=== PATIENT | female | born 1940 | race Caucasian/White ===

== ENCOUNTER → 2018-01-19 10:17 | Outpatient (CLI) | payer MEDICARE, OTHER, SELFPAY ==
[2018-01-19 12:09] LABS: BUN Creatinine Ratio 28.6 (6-22); Blood Urea Nitrogen 20 mg/dL (7-17); Calcium 9.1 mg/dL (8.4-10.2); Carbon Dioxide 29 mmol/L (22-32); Chloride 103 mmol/L (98-107); Cholesterol 217 mg/dL (140-199); Estimated Glomerular Filt Rate > 60.0 mL/min (>60); Glucose 91 mg/dL (80-110); HDL Cholesterol 100 mg/dL (40-60); HEMOLYSIS < 15 (0-50); LDL Cholesterol Calculated 107 mg/dL (<100); Potassium 4.5 mmol/L (3.4-5.1); Sodium 142 mmol/L (137-145); Triglycerides 51 mg/dL (35-150)
[2018-01-19 12:19] LABS: Free T4, Direct Thyroxine 1.32 ng/dL (0.78-2.19); Vitamin D 25 Hydroxy (D3) 74.1 ng/mL (30.0-100.0)
[2018-01-19 12:33] LABS: Thyroid Stimulating Hormone 0.77 uIU/mL (0.47-4.68)
[2018-01-19 12:53] LABS: Vitamin B12 492 pg/mL (239-931)
[2018-01-19 13:08] LABS: Hep C Virus Ab w/Reflex Quant NEGATIVE s/c (NEGATIVE)
== END ==
PROVIDERS: Family Provider Acupuncturist; PCP Internal Medicine; Visit Provider Internal Medicine
DX: Z00.00 Encounter for general adult medical examination without abnormal findings (principal); D51.9 Vitamin B12 deficiency anemia, unspecified; E03.9 Hypothyroidism, unspecified; M81.0 Age-related osteoporosis without current pathological fracture
CPT/HCPCS: 36415; 80048; 80061; 82306; 82607; 84439; 84443; 86803

== ENCOUNTER → 2018-05-19 15:08 | Outpatient (CLI) | payer MEDICARE, OTHER, SELFPAY ==
--- NOTE | 2018-05-19 | DI.RAD.S_ITS ---
PROCEDURE: XR LUMBAR SPINE 2-3V INDICATIONS: LOW BACK PAIN TECHNIQUE: 3 views of the lumbar spine were acquired. COMPARISON: [facility], CT, CHEST/ABD/PEL WITH CONTRAST, 11/27/2015, 9:28. [facility], CR, L-SPINE 2-3 VIEWS, 06/27/2010, 8:15. FINDINGS: Bones: 5 [id number] vertebrae are present. There is a mildly abnormal bony alignment at the L4-5 level where grade 1 anterolisthesis of L4 on L5 is present. Degenerative disc disease is mild to moderate along the lower half of the LS-spine and facet osteoarthritis is most prominent at L4-5 and L5-S1. No vertebral body compression fractures. No suspicious bony lesions. Soft tissues: Overlying bowel gas pattern is normal. No pelvic suspicious soft tissue calcifications but there is a right upper quadrant 8 x 9 mm ovoid calcification more likely within the gallbladder than the kidney. IMPRESSION: No trauma found. Mild to moderate degenerative disc disease along the lower half of the lumbosacral spine with facet osteoarthritis allowing anterolisthesis grade 1 of L4 on L5. Note is made of a single calcification right upper quadrant more likely to be gallbladder in position than within the collecting system of the right kidney. Dictated by: Avery Mast M.D. on 05/19/2018 at 15:59 Approved by: Avery Mast M.D. on 05/19/2018 at 16:02
== END ==
PROVIDERS: Family Provider Acupuncturist; PCP Internal Medicine; Visit Provider Internal Medicine
DX: M51.37 Other intervertebral disc degeneration, lumbosacral region (principal); M47.817 Spondylosis without myelopathy or radiculopathy, lumbosacral region; M43.16 Spondylolisthesis, lumbar region; M54.5 Low back pain
CPT/HCPCS: 72100

== ENCOUNTER → 2018-06-11 13:30 | Outpatient (CLI) | payer MEDICARE, OTHER, SELFPAY ==
--- NOTE | 2018-06-11 13:32 | DI.RAD.S_ITS ---
PROCEDURE: XR HIP W PEL IF DONE RT 2V INDICATIONS: hip stiffness and loss of ROM TECHNIQUE: AP pelvis with lateral view(s) of the right hip(s). COMPARISON: None. FINDINGS: Bones: No fractures or dislocations. Pelvic ring appears intact. No suspicious bony lesions. Soft tissues: The visualized bowel gas pattern is normal. No suspicious soft tissue calcifications. IMPRESSION: Only very small degree of symmetric hip joint osteoarthritis is present bilaterally. Moderate generalize colonic obstipation is noted, however. . Dictated by: Avery Mast M.D. on 06/11/2018 at 14:44 Approved by: Avery Mast M.D. on 06/11/2018 at 14:45
== END ==
PROVIDERS: Family Provider Acupuncturist; PCP Internal Medicine; Visit Provider Physician Assistant
DX: M25.651 Stiffness of right hip, not elsewhere classified (principal); M16.0 Bilateral primary osteoarthritis of hip; K59.00 Constipation, unspecified
CPT/HCPCS: 73502

== ENCOUNTER → 2018-11-30 14:07 | Outpatient (CLI) | payer MEDICARE, OTHER, SELFPAY ==
--- NOTE | 2018-11-30 14:13 | DI.MG.S_ITS ---
BILATERAL DIGITAL SCREENING MAMMOGRAM 3D/2D WITH CAD: 11/30/2018 CLINICAL: Routine screening. Family history of breast cancer. Comparison is made to exams dated: 09/29/2017 mammogram, 02/05/2016 mammogram, and 01/29/2015 mammogram - [facility]. The tissue of both breasts is heterogeneously dense. This may lower the sensitivity of mammography. Current study was also evaluated with a Computer Aided Detection (CAD) system. No significant masses, calcifications, or other findings are seen in either breast. There has been no significant interval change. IMPRESSION: NEGATIVE There is no mammographic evidence of malignancy. A 1 year screening mammogram is recommended. This exam was interpreted at Station ID: [id number]. NOTE: For mammograms, a report in lay terms will be sent to the patient. Approximately 15% of breast malignancies will not be visualized mammographically. In the management of a palpable breast mass, a negative mammogram must not discourage biopsy of a clinically suspicious lesion. Electronically Signed By: Jonathon nunn/ashwini:11/30/2018 17:56:24 letter sent: Normal Exam ACR BI-RADS Category 1: Negative [id number]
[2018-11-30 15:41] LABS: Alanine Aminotransferase 18 IU/L (9-52); Albumin 4.5 g/dL (3.5-5.0); Albumin Globulin Ratio 1.7 (1.0-2.8); Alkaline Phosphatase 81 U/L (38-126); Aspartate Aminotransferase 20 IU/L (14-36); BUN Creatinine Ratio 23.8 (6-22); Bilirubin Total 0.6 mg/dL (0.2-1.3); Blood Urea Nitrogen 19 mg/dL (7-17); Calcium 8.9 mg/dL (8.4-10.2); Carbon Dioxide 28 mmol/L (22-32); Chloride 101 mmol/L (98-107); Estimated Glomerular Filt Rate > 60.0 mL/min (>60); Globulin 2.7 g/dL (1.7-4.1); Glucose 87 mg/dL (80-110); HEMOLYSIS < 15 (0-50); Potassium 3.8 mmol/L (3.4-5.1); Sodium 137 mmol/L (137-145); Total Protein 7.2 g/dL (6.3-8.2)
[2018-11-30 16:09] LABS: Thyroid Stimulating Hormone 0.59 uIU/mL (0.47-4.68)
== END ==
PROVIDERS: Family Provider Acupuncturist; PCP Physician Assistant
DX: Z12.31 Encounter for screening mammogram for malignant neoplasm of breast (principal); Z80.3 Family history of malignant neoplasm of breast; Z13.820 Encounter for screening for osteoporosis; M81.0 Age-related osteoporosis without current pathological fracture; Z78.0 Asymptomatic menopausal state; Z13.228 Encounter for screening for other metabolic disorders; E03.9 Hypothyroidism, unspecified; Z90.722 Acquired absence of ovaries, bilateral; Z85.42 Personal history of malignant neoplasm of other parts of uterus
CPT/HCPCS: 36415; 77063; 77067; 77080; 80053; 84443

== ENCOUNTER 2019-01-11 06:58 | Day surgery (SDC) | payer MEDICARE, OTHER, SELFPAY ==
--- NOTE | 2019-01-11 | PATH_ITS ---
[facility] Accession Number: [id number] . 01 Material submitted: . rectum - DISTAL RECTAL POLYP . 02 Diagnosis: Distal Rectum, Polyp, Biopsy: Hyperplastic polyp. [facility]/01/12/2019 . 02 Electronically signed: . Autumn Vaca MD, Pathologist NPI- [id number] . 01 Gross description: . DISTAL RECTAL POLYP: Received in formalin is 1 fragment(s) of billingsley, soft tissue measuring 0.3 x 0.3 x 0.2 cm which is entirely submitted and submitted entirely in 1 cassette(s) /DMC /DMC . 02 Pathologist provided ICD-10: K62.1 . 02 CPT . 007778 Performed at: 01 [facility] [address] [id number] MD Chirag Cuellar MD Phone: [phone] Performed at: 02 [facility] [address] [place], [place] [id number] MD Autumn Vaca MD Phone: [phone]
[2019-01-11] MEDS: SODIUM CHLORIDE 0.9% 1,000 ML 200 ML IV (07:16)
[2019-01-11 07:18] VITALS: BP 128/82; PULSE 79; RESP 16; TEMP 36.4; O2SAT 96; BMI 20.6
--- NOTE | 2019-01-11 07:58 | PM.HP.1 ---
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 ) substance use type: former substance user Family & Social History Social History: household members significant other Tobacco & Substance use: Smoking Status Never smoker alcohol intake current Meds Home Medications Medication Instructions Recorded Confirmed Type levothyroxine 88 mcg capsule 88 mcg PO DAILY 06/05/18 01/11/19 History prasterone (dhea) 25 mg capsule 25 mg PO DAILY 06/05/18 01/11/19 History varicella-zoster glycoE [id number] 50 mcg IM ONCE #1 each 08/18/18 Rx adj(PF) 50 mcg/0.5 mL IM susp, kit Med/Supplement List PO 08/24/18 History conjugated estrogens 0.625 mg/gram See Rx Instructions TOP .COMPLEX 08/24/18 01/11/19 History vaginal cream gram Allergies Allergy/AdvReac Type Severity Reaction Status Date / Time ampicillin Allergy Mild Rash Verified 01/11/19 07:16 Penicillins Allergy Mild Rash Verified 01/11/19 07:16 Sulfa (Sulfonamide Allergy Mild Rash Verified 01/11/19 07:16 Antibiotics) Review of Systems Constitutional Constitutional: Denies fever(s) Eyes Eyes: Denies bulging eyes ENT Ears, Nose, Mouth, and Throat: No lip swelling Cardiovascular Cardiovascular: Denies generalize swelling Respiratory Respiratory: Denies stridor Gastrointestinal Gastrointestinal: Denies coffee ground emesis Musculoskeletal Musculoskeletal: Denies loss of height Integumentary/Breasts Skin/Breast: Denies wounds Neurologic Neurologic: Denies abnormal speech and Denies confusion Psychiatric Psychiatric: Denies confusion Endocrine Endocrine: Denies deepening of the voice Hematologic/Lymphatic Hematologic/Lymphatic: Denies lymphadenopathy Allergic/Immunologic Allergic/Immunologic: Denies lip swelling Exam Vital Signs (past 8 hours): - 01/11/19 07:18 Temperature 97.6 F Pulse Rate 79 Respiratory Rate 16 Blood Pressure 128/82 Pulse Oximetry 96 Oxygen Delivery Method Room Air Const General: cooperative and healthy appearing Orientation: alert HENMT Head: normal to inspection Nose: nares normal Mouth: oral mucosae normal and lip normal Eyes Eyelids: eyelids normal Conjunctivae: conjunctivae normal Sclera: sclerae normal Neck Neck: supple and other (No thyromegally) Chest Chest: other (LCTAB , regular respiratory effort) Cardio Rhythm: regular rhythm Heart Sounds: S1 normal, S2 normal, no gallops, no murmurs and no rubs GI Other: abd soft nontender non distended. well healed tranverse incision in suprapubic region Skin General: no rashes or lesions noted Neuro General: alert and awake Psych Appearance: grossly normal Affect: normal affect Assessment & Plan Assessment & Plan narrative: 78 yo woman presents for regular screaning colonoscopy Risk discussed including , perforation, hypoxia and missed leasions Pt ready to proceed
[2019-01-11] MEDS: MIDAZOLAM 5 MG/5 ML VIAL IV (08:17)
[2019-01-11] MEDS: fentaNYL 250 MCG/5 ML INJ IV (08:17)
[2019-01-11 09:06] VITALS: BP 106/67; PULSE 67; RESP 17; TEMP 36.3; O2SAT 95
--- NOTE | 2019-01-11 09:06 | PM.OP.ENDO ---
Operative Date/Time/Diagnoses Date of procedure: 01/11/19 Time of procedure: 09:07 Pre-op diagnosis: screening colonoscopy Post-op diagnosis: other (rectal polyp) Procedure & Clinicians Study performed: screaning colonoscopy rectal polypectomy with cold biopsy forceps x 1 Same procedure as scheduled: No Indications: 78-year-old woman with a history of colon polyps presents for her regular screening colonoscopy. Last 5 years prior Surgeon: Yang Fregoso Procedure Notes SCOAP/Timeout: Completed Procedure in detail: Patient was brought to the endoscopy suite, a time-out was completed, patient was sedated with fentanyl and midazolam for total doses of 100 micro g of fentanyl and 4 mg of midazolam over the course of the entire procedure. A digital rectal exam was performed without masses or polyps identified. Her anoderm was normal. A 160 cm pediatric scope was then introduced through the anus -2 was advanced up through the rectal valves and negotiated the rectosigmoid junction. The majority of her colon including the transverse colon as well as the sigmoid colon was quite tortuous and significantly redundant, this required several advancements and withdrawals to in a able enough scope length to reach the cecum. Eventually the cecum was identified clearly. The ileocecal valve was noted as was the appendiceal orifice as and the crows floot. Low colonoscope was then slowly withdrawn. There was a small intraluminal lipoma noted within the mid ascending colon. And again the tortuosity was encountered. However there were no mucosal lesions identified within the colon itself. Upon entering the rectum the scope was withdrawn into the distal rectum a small sessile polyp was identified here. The was removed with a cold biopsy forceps times sent to pathology. The scope was then retroflexed with no additional lesions identified. Patient tolerated the procedure well Prep was adequate Scope withdrawal time: 18 Sedation minutes: 49 Findings: polyp Specimen(s): other (Distal rectal polyp) Complications: none Impression: 1) small ascending colon lipoma 2) distal rectal polyp status post polypectomy 3) tortuous colon Recommendations: Colonscopy in 5 years Plan for aftercare: PACU then home Follow up: as needed Disposition: PACU
[2019-01-11 09:11] VITALS: BP 116/74; PULSE 78; RESP 13; O2SAT 96
[2019-01-11 09:16] VITALS: BP 105/73; PULSE 70; RESP 13; TEMP 36.4; O2SAT 95
[2019-01-11 09:28] VITALS: BP 116/70; PULSE 67; RESP 16; TEMP 36.6; O2SAT 96
--- NOTE | 2019-01-11 09:32 | SUR.PHASEII ---
stable phase two dressed when ready and left when ready and in stable condition.
== END 2019-01-11 09:33 | disposition home or self-care (01) ==
PROVIDERS: Family Provider Acupuncturist; PCP Physician Assistant; Visit Provider Surgery
PROC: 0DJD8ZZ Inspection of Lower Intestinal Tract, Via Natural or Artificial Opening Endoscopic (ICD-10-PCS; CPT 45378; principal; 2019-01-11 07:45)
DX: Z86.010 Personal history of colon polyps (principal); K62.1 Rectal polyp; D17.79 Benign lipomatous neoplasm of other sites
CPT/HCPCS: 45380; 88305; 99152; 99153; J2250; J3010

== ENCOUNTER → 2019-04-04 12:23 | Outpatient (CLI) | payer MEDICARE, OTHER, SELFPAY | PROVIDERS: Family Provider Acupuncturist; PCP Physician Assistant; Visit Provider Physician Assistant | DX: R30.0 Dysuria (principal) | CPT/HCPCS: 87086 ==

== ENCOUNTER 2019-04-23 13:59 | Emergency (ER) | payer MEDICARE, OTHER, SELFPAY ==
[2019-04-23 14:08] VITALS: BP 160/82; PULSE 84; RESP 13; TEMP 36.5; O2SAT 97
--- NOTE | 2019-04-23 14:25 | DI.CT.S_ITS ---
PROCEDURE: CT HEAD/BRAIN WO CON INDICATIONS: New onset confusion TECHNIQUE: Noncontrast 4.5 mm thick angled axial sections acquired from the foramen magnum to the vertex, with coronal and sagittal reformats. For radiation dose reduction, the following was used: automated exposure control, adjustment of mA and/or kV according to patient size. COMPARISON: [facility], MR, BRAIN WITH AND WITHOUT CONTRAS, 12/09/2007, 8:20. FINDINGS: Image quality: Diagnostic. CSF spaces: Basal cisterns are patent. No extra-axial fluid collections. Ventricles are normal in size and shape. Mild parenchymal volume loss within the bilateral frontal regions is present. Brain: No midline shift. No intracranial masses or hemorrhage. Mcnally-white matter interface is normal. Skull and face: Calvarium and visualized facial bones are intact, without suspicious lesions. Sinuses: Visualized sinuses and mastoids are clear. IMPRESSION: 1. No acute intracranial hemorrhage. 2. Parenchymal volume loss involving the bilateral frontal lobes. Dictated by: Rodolfo Tovar M.D. on 04/23/2019 at 13:53 Approved by: Rodolfo Tovar M.D. on 04/23/2019 at 13:55
--- NOTE | 2019-04-23 14:27 | PC.NURSE ---
Patient reports fuzzy, slow thinking since this morning. She answers questions appropriately but states she is slower with her thinking than normal. has history of transient global amnesia however this feels different.
[2019-04-23 14:29] LABS: Add Manual Diff / Slide Review NO; Basophils Absolute Auto 0 /uL (0-100); Basophils Percent Auto 0.6 % (0-2); Eosinophils Absolute Auto 100 /uL (0-450); Hematocrit 41.3 % (36-46); Hemoglobin 14.3 g/dL (12.0-16.0); Lymphocytes Absolute Auto 2000 /uL (1100-4500); Lymphocytes Percent Auto 31.8 % (25-40); Mean Corpuscular HGB Conc 34.6 % (30-36); Mean Corpuscular Hemoglobin 30.8 PG (26-34); Mean Corpuscular Volume 88.9 fL (80-100); Monocytes Absolute Auto 500 /uL (0-900); Monocytes Percent Auto 8.2 % (3-14); Neutrophils Absolute Auto 3600 /uL (1500-7000); Neutrophils Percent Auto 57.4 % (50-75); Platelet Count 241 X10^3/uL (150-400); Red Blood Cell Count 4.64 X10^6/uL (4.0-5.2); Red Cell Distribution Width 12.9 % (11.6-14.8); White Blood Cell Count 6.2 X10^3/uL (4.5-11.0)
[2019-04-23 14:30] VITALS: BP 121/76; PULSE 65; RESP 12; O2SAT 97
[2019-04-23 14:34] LABS: PTT Partial Thromboplastin Tim 32 SECONDS (26.4-36.2)
[2019-04-23 14:39] LABS: Alanine Aminotransferase 15 IU/L (9-52); Albumin 4.3 g/dL (3.5-5.0); Albumin Globulin Ratio 1.5 (1.0-2.8); Alkaline Phosphatase 80 U/L (38-126); Aspartate Aminotransferase 20 IU/L (14-36); BUN Creatinine Ratio 24.3 (6-22); Bilirubin Total 0.6 mg/dL (0.2-1.3); Blood Urea Nitrogen 17 mg/dL (7-17); Calcium 9.6 mg/dL (8.4-10.2); Carbon Dioxide 28 mmol/L (22-32); Chloride 102 mmol/L (98-107); Creatine Kinase 74 U/L (30-135); Estimated Glomerular Filt Rate > 60.0 mL/min (>60); Globulin 2.9 g/dL (1.7-4.1); Glucose 95 mg/dL (80-110); HEMOLYSIS < 15 (0-50); Sodium 139 mmol/L (137-145); Total Protein 7.2 g/dL (6.3-8.2)
[2019-04-23 14:51] LABS: Troponin I < 0.012 ng/mL (0.01-0.034)
--- NOTE | 2019-04-23 15:02 | ED.NEUROSD ---
HPI - Neuro Symptoms/Deficit <EMILIE Santo - Last Filed: 04/23/19 21:56> General Chief Complaint: Neuro Symptoms/Deficit Stated Complaint: TIA ? Time Seen by Provider: 04/23/19 14:09 Source: patient Mode of arrival: ambulatory Limitations: no limitations History of Present Illness HPI Narrative: 78-year-old female with history of global amnesia, presents emergency department today complaining of increased confusion starting at 9:00 a.m. this morning. She states she was forgetting things like how to turn off her computer which is not normal for her. She was at home with her boyfriend who confirms that this started around min a.m.. Today when she arrives she states that her confusion is getting a little better. She states this does not feel like her global amnesia in the past. Patient denies any symptoms such as headache, vision changes, slurred speech, difficulty swallowing, facial droop, limb weakness, gait disturbance, chest pain, shortness of breath, syncope, nausea, vomiting, diarrhea, or dizziness. Patient denies taking blood thinners and also denies history of CVA. On Anticoagulants: No Related Data Home Medications Medication Instructions Recorded Confirmed prasterone (dhea) 25 mg capsule 25 mg PO DAILY 06/05/18 04/04/19 Med/Supplement List PO 08/24/18 04/04/19 conjugated estrogens 0.625 mg/gram See Rx Instructions TOP .COMPLEX 08/24/18 04/04/19 vaginal cream gram [place] Oil See Rx Instructions .ROUTE .COMPLEX 04/04/19 04/04/19 Previous Rx's Medication Instructions Recorded varicella-zoster gE-AS01B (PF) 50 50 mcg IM ONCE #1 each 08/18/18 mcg/0.5 mL IM susp, kit nitrofurantoin 100 mg PO BID #20 cap 04/14/19 monohydrate/macrocrystals 100 mg capsule levothyroxine 88 mcg tablet 88 mcg PO DAILY #90 tab 04/20/19 Allergies Allergy/AdvReac Type Severity Reaction Status Date / Time ampicillin Allergy Mild Rash Verified 04/23/19 14:07 Penicillins Allergy Mild Rash Verified 04/23/19 14:07 Sulfa (Sulfonamide Allergy Mild Rash Verified 04/23/19 14:07 Antibiotics) Review of Systems <EMILIE Santo - Last Filed: 04/23/19 21:56> Review of Systems Narrative: REVIEW OF SYSTEMS: GENERAL: Denies fever or chills. HENT: No head trauma, hearing loss or sore throat. EYES: No loss of vision, double vision, eye pain, or irritation. CARDIOVASCULAR: No chest pain or syncope. RESPIRATORY: No shortness of breath or cough. GASTROINTESTINAL: No nausea, vomiting, diarrhea, or constipation. GENITOURINARY: No flank pain or dysuria. MUSCULOSKELETAL: No pain, weakness, or deformities. INTEGUMENTARY: No rash, lesions, or pruritus. NEURO: Complains of confusion, see HPI. No numbness, tingling, memory loss. PSYCH: No behavior or mood changes. 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 ) substance use type: former substance user Exam <EMILIE Santo - Last Filed: 04/23/19 21:56> Initial Vital Signs Initial Vital Signs: Vital Signs Temperature 97.7 F 04/23/19 14:08 Pulse Rate 84 04/23/19 14:08 Respiratory Rate 13 04/23/19 14:08 Blood Pressure 160/82 H 04/23/19 14:08 Pulse Oximetry 97 04/23/19 14:08 PHYSICAL EXAMINATION: GENERAL: Well groomed, alert, and cooperative. Answers questions promptly and appropriately. Vital signs noted. HENT: Normocephalic, atraumatic. Ear canals patent. Oral mucosa is pink and moist. EYES: Conjunctiva pink, sclera white, no periorbital swelling. CHEST: Normal to inspection and without deformities. CARDIOVASCULAR: S1 and S2 sounds normal. Regular rate and rhythm, no murmurs, clicks, or bruits. No pedal edema. RESPIRATORY: Normal respiratory rate, trachea midline, airway patent. No stridor, nasal flaring or accessory muscle use. Lungs are clear in all [place] without wheeze, rhonchi, or crackles. GASTROINTESTINAL: Bowel sounds normoactive. Abdomen is soft and non-tender. No organomegaly. MUSCULOSKELETAL: Normal gait and coordination. Equal tone and mass bilaterally. EXTREMITIES: CMS intact. Moves all extremities. SKIN: Warm, dry, soft, appropriate color for ethnicity. No lesions, rashes, or wounds. NEURO: Alert and Oriented X 3. CN III-XIII grossly intact. Good coordination. No ataxia, or sensory deficits, or cognitive issues. Patient was able to to also identify who the president was, what she ate for breakfast, and activity she did the day prior. Serial NIH scores were 0 (done on admission, and 1 hour later). Re-examination of her neuro status remained unchanged after the development of her headache. PSYCH: Appropriate affect and mood. <Ayse Grimes DO - Last Filed: 04/24/19 07:12> Initial Vital Signs Initial Vital Signs: Vital Signs Temperature 97.7 F 04/23/19 14:08 Pulse Rate 84 04/23/19 14:08 Respiratory Rate 13 04/23/19 14:08 Blood Pressure 160/82 H 04/23/19 14:08 Pulse Oximetry 97 04/23/19 14:08 Course <EMILIE Santo - Last Filed: 04/23/19 21:56> Course Course Narrative: Patient's symptoms continue to resolve throughout the emergency department stay. By the time she was discharged she stated that her symptoms were completely resolved. Upon re-evaluation after the CT scan, patient reported a 3/10 aching dull headache to the back of her right eye. She states that she occasionally gets migraines with aura, her aura is confusion and her migraine is usually behind her eye. She denies any vision changes at this time. Patient was given Tylenol for her migraine. Additionally, patient was also evaluated by Dr. Grimes in order to help determine if admission was needed. At 1630 Dr. Henley was consulted, she agreed that this patient's case sounded more like a complicated migraine and there is low probability for TIA, especially given her serial NIH scores of 0. Patient and her boyfriend were agreeable to plan of care and she was discharged with very strict return precautions. Patient was told to follow up with her primary care provider in the following week. Orders Ordered: Discontinued Medications Acetaminophen (Tylenol) 650 mg PO NOW ONE Stop: 04/23/19 16:03 Last Admin: 04/23/19 16:45 Dose: 650 mg Documented by: HAILEY Vital Signs Vital signs: Vital Signs - 8 hr 04/23/19 14:08 04/23/19 14:30 04/23/19 15:30 Temperature 97.7 F Pulse Rate 84 65 66 Respiratory Rate 13 12 16 Blood Pressure 160/82 H Blood Pressure [Left Arm] 121/76 122/78 Pulse Oximetry 97 97 99 04/23/19 16:27 04/23/19 17:12 Temperature Pulse Rate 65 66 Respiratory Rate 13 16 Blood Pressure 121/76 Blood Pressure [Left Arm] 119/73 Pulse Oximetry 96 98 <Ayse Grimes DO - Last Filed: 04/24/19 07:12> Orders Ordered: Discontinued Medications Acetaminophen (Tylenol) 650 mg PO NOW ONE Stop: 04/23/19 16:03 Last Admin: 04/23/19 16:45 Dose: 650 mg Documented by: HAILEY Vital Signs Vital signs: Vital Signs - 8 hr 04/23/19 14:08 04/23/19 14:30 04/23/19 15:30 Temperature 97.7 F Pulse Rate 84 65 66 Respiratory Rate 13 12 16 Blood Pressure 160/82 H Blood Pressure [Left Arm] 121/76 122/78 Pulse Oximetry 97 97 99 04/23/19 16:27 04/23/19 17:12 Temperature Pulse Rate 65 66 Respiratory Rate 13 16 Blood Pressure 121/76 Blood Pressure [Left Arm] 119/73 Pulse Oximetry 96 98 MDM - Neuro Symptoms/Deficit <EMILIE Santo - Last Filed: 04/23/19 21:56> Medical Records Attestation: I reviewed the patient's medical records. Lab Data Attestation: I reviewed the patient's lab results. Result diagrams: 04/23/19 14:10 04/23/19 14:10 Labs: Lab Results 04/23/19 04/23/19 04/23/19 Range/Units 14:10 14:10 14:10 WBC 6.2 (4.5-11.0) X10^3/uL RBC 4.64 (4.0-5.2) X10^6/uL Hgb 14.3 (12.0-16.0) g/dL Hct 41.3 (36-46) % MCV 88.9 (80-100) fL MCH 30.8 (26-34) PG MCHC 34.6 (30-36) % RDW 12.9 (11.6-14.8) % Plt Count 241 (150-400) X10^3/uL Neut % (Auto) 57.4 (50-75) % Lymph % (Auto) 31.8 (25-40) % [place] % (Auto) 8.2 (3-14) % Eos % (Auto) 2.0 (2-4) % Baso % (Auto) 0.6 (0-2) % Neut # (Auto) 3600 (4570-5373) /uL Lymph # (Auto) 2000 (4097-2521) /uL Davidson # (Auto) 500 (0-900) /uL Eos # (Auto) 100 (0-450) /uL Baso # (Auto) 0 (0-100) /uL PT 12.0 (10.1-12.7) SECONDS INR 1.0 (0.9-1.3) APTT 32 (26.4-36.2) SECONDS Sodium 139 (137-145) mmol/L Potassium 4.0 (3.4-5.1) mmol/L Chloride 102 (98-107) mmol/L Carbon Dioxide 28 (22-32) mmol/L BUN 17 (7-17) mg/dL Creatinine 0.70 (0.52-1.04) mg/dL Estimated GFR > 60.0 (>60) mL/min BUN/Creatinine Ratio 24.3 H (6-22) Glucose 95 (80-110) mg/dL Calcium 9.6 (8.4-10.2) mg/dL Total Bilirubin 0.6 (0.2-1.3) mg/dL AST 20 (14-36) IU/L ALT 15 (9-52) IU/L Alkaline Phosphatase 80 (38-126) U/L Total Creatine Kinase 74 (30-135) U/L CK-MB (CK-2) TNP CK-MB (CK-2) Rel Index TNP Troponin I < 0.012 (0.01-0.034) ng/mL Total Protein 7.2 (6.3-8.2) g/dL Albumin 4.3 (3.5-5.0) g/dL Globulin 2.9 (1.7-4.1) g/dL Albumin/Globulin Ratio 1.5 (1.0-2.8) Urine Opiates Screen (Negative) Ur Oxycodone Screen (Negative) Urine Methadone Screen (Negative) Ur Barbiturates Screen (Negative) U Tricyclic Antidepress (Negative) Ur Phencyclidine Scrn (Negative) Ur Amphetamines Screen (Negative) U Methamphetamines Scrn (Negative) Ur MDMA Scrn (Ecstasy) (Negative) U Benzodiazepines Scrn (Negative) Urine Cocaine Screen (Negative) U Marijuana (THC) Screen (Negative) 04/23/19 Range/Units 14:45 WBC (4.5-11.0) X10^3/uL RBC (4.0-5.2) X10^6/uL Hgb (12.0-16.0) g/dL Hct (36-46) % MCV (80-100) fL MCH (26-34) PG MCHC (30-36) % RDW (11.6-14.8) % Plt Count (150-400) X10^3/uL Neut % (Auto) (50-75) % Lymph % (Auto) (25-40) % Davidson % (Auto) (3-14) % Eos % (Auto) (2-4) % Baso % (Auto) (0-2) % Neut # (Auto) (6147-4356) /uL Lymph # (Auto) (6564-9146) /uL Davidson # (Auto) (0-900) /uL Eos # (Auto) (0-450) /uL Baso # (Auto) (0-100) /uL PT (10.1-12.7) SECONDS INR (0.9-1.3) APTT (26.4-36.2) SECONDS Sodium (137-145) mmol/L Potassium (3.4-5.1) mmol/L Chloride (98-107) mmol/L Carbon Dioxide (22-32) mmol/L BUN (7-17) mg/dL Creatinine (0.52-1.04) mg/dL Estimated GFR (>60) mL/min BUN/Creatinine Ratio (6-22) Glucose (80-110) mg/dL Calcium (8.4-10.2) mg/dL Total Bilirubin (0.2-1.3) mg/dL AST (14-36) IU/L ALT (9-52) IU/L Alkaline Phosphatase (38-126) U/L Total Creatine Kinase (30-135) U/L CK-MB (CK-2) CK-MB (CK-2) Rel Index Troponin I (0.01-0.034) ng/mL Total Protein (6.3-8.2) g/dL Albumin (3.5-5.0) g/dL Globulin (1.7-4.1) g/dL Albumin/Globulin Ratio (1.0-2.8) Urine Opiates Screen Negative (Negative) Ur Oxycodone Screen Negative (Negative) Urine Methadone Screen Negative (Negative) Ur Barbiturates Screen Negative (Negative) U Tricyclic Antidepress Negative (Negative) Ur Phencyclidine Scrn Negative (Negative) Ur Amphetamines Screen Negative (Negative) U Methamphetamines Scrn Negative (Negative) Ur MDMA Scrn (Ecstasy) Negative (Negative) U Benzodiazepines Scrn Negative (Negative) Urine Cocaine Screen Negative (Negative) U Marijuana (THC) Screen Negative (Negative) Urine Dip Bedside Urine Glucose Negative Bedside Urine Bilirubin - Negative Bedside Urine Ketone - Negative Urine Specific [place] 1.010 Bedside Urine Occult Blood - Negative Bedside Urine pH 7.0 Bedside Urine Protein - Negative Bedside Urine Urobilinogen - Negative Bedside Urine Nitrite - Negative Bedside Urine Leukocytes - Negative Esterase Imaging Data CT scan - head: Radiologist's impression: [address] [address] [address] Scan Report Signed Patient: Jonathan Castaneda MMR#: [id number] : 2Acct:[id number] Age/Sex: 78 / FDate of Service: 04/23/19 Loc: ED Accession Number: [id number] Procedure: CT head/brain wo con Ordering Provider: Maile Soto PROCEDURE: CT HEAD/BRAIN WO CON INDICATIONS: New onset confusion TECHNIQUE: Noncontrast 4.5 mm thick angled axial sections acquired from the foramen magnum to the vertex, with coronal and sagittal reformats. For radiation dose reduction, the following was used: automated exposure control, adjustment of mA and/or kV according to patient size. COMPARISON: [facility], MR, BRAIN WITH AND WITHOUT CONTRAS, 12/09/2007, 8:20. FINDINGS: Image quality: Diagnostic. CSF spaces: Basal cisterns are patent. No extra-axial fluid collections. Ventricles are normal in size and shape. Mild parenchymal volume loss within the bilateral frontal regions is present. Brain: No midline shift. No intracranial masses or hemorrhage. Mcnally-white matter interface is normal. Skull and face: Calvarium and visualized facial bones are intact, without suspicious lesions. Sinuses: Visualized sinuses and mastoids are clear. IMPRESSION: 1. No acute intracranial hemorrhage. 2. Parenchymal volume loss involving the bilateral frontal lobes. Dictated by: Rodolfo Tovar M.D. on 04/23/2019 at 13:53 Approved by: Rodolfo Tovar M.D. on 04/23/2019 at 13:55 ECG Data Interpretation: Normal sinus rhythm, rate 68, IN interval 158, QTC 412. No ST elevation or ST depression, no T-wave abnormality, no ectopy. EKG was also viewed by Dr. Grimes. MDM Narrative Medical decision making narrative: Differential includes CVA, TIA, versus complicated migraine (most likely complicated migraine as patient has had or as of confusion past, she later developed a headache, symptoms are resolving, and NIH scores of 0 with serial testing, low risk factors for TIA). After consultation with Dr. Grimes and Dr. Henley, we all agree she was safe to discharge home. No concern for infection for cardiac etiology due to reassuring labs and reassuring EKG. Very strict return precautions were given and follow-up instructions discussed. <Ayse Grimes, DO - Last Filed: 04/24/19 07:12> Lab Data Labs: Lab Results 04/23/19 04/23/19 04/23/19 Range/Units 14:10 14:10 14:10 WBC 6.2 (4.5-11.0) X10^3/uL RBC 4.64 (4.0-5.2) X10^6/uL Hgb 14.3 (12.0-16.0) g/dL Hct 41.3 (36-46) % MCV 88.9 (80-100) fL MCH 30.8 (26-34) PG MCHC 34.6 (30-36) % RDW 12.9 (11.6-14.8) % Plt Count 241 (150-400) X10^3/uL Neut % (Auto) 57.4 (50-75) % Lymph % (Auto) 31.8 (25-40) % Davidson % (Auto) 8.2 (3-14) % Eos % (Auto) 2.0 (2-4) % Baso % (Auto) 0.6 (0-2) % Neut # (Auto) 3600 (8144-6365) /uL Lymph # (Auto) 2000 (5371-6942) /uL [place] # (Auto) 500 (0-900) /uL Eos # (Auto) 100 (0-450) /uL Baso # (Auto) 0 (0-100) /uL PT 12.0 (10.1-12.7) SECONDS INR 1.0 (0.9-1.3) APTT 32 (26.4-36.2) SECONDS Sodium 139 (137-145) mmol/L Potassium 4.0 (3.4-5.1) mmol/L Chloride 102 (98-107) mmol/L Carbon Dioxide 28 (22-32) mmol/L BUN 17 (7-17) mg/dL Creatinine 0.70 (0.52-1.04) mg/dL Estimated GFR > 60.0 (>60) mL/min BUN/Creatinine Ratio 24.3 H (6-22) Glucose 95 (80-110) mg/dL Calcium 9.6 (8.4-10.2) mg/dL Total Bilirubin 0.6 (0.2-1.3) mg/dL AST 20 (14-36) IU/L ALT 15 (9-52) IU/L Alkaline Phosphatase 80 (38-126) U/L Total Creatine Kinase 74 (30-135) U/L CK-MB (CK-2) TNP CK-MB (CK-2) Rel Index TNP Troponin I < 0.012 (0.01-0.034) ng/mL Total Protein 7.2 (6.3-8.2) g/dL Albumin 4.3 (3.5-5.0) g/dL Globulin 2.9 (1.7-4.1) g/dL Albumin/Globulin Ratio 1.5 (1.0-2.8) Urine Opiates Screen (Negative) Ur Oxycodone Screen (Negative) Urine Methadone Screen (Negative) Ur Barbiturates Screen (Negative) U Tricyclic Antidepress (Negative) Ur Phencyclidine Scrn (Negative) Ur Amphetamines Screen (Negative) U Methamphetamines Scrn (Negative) Ur MDMA Scrn (Ecstasy) (Negative) U Benzodiazepines Scrn (Negative) Urine Cocaine Screen (Negative) U Marijuana (THC) Screen (Negative) 04/23/19 Range/Units 14:45 WBC (4.5-11.0) X10^3/uL RBC (4.0-5.2) X10^6/uL Hgb (12.0-16.0) g/dL Hct (36-46) % MCV (80-100) fL MCH (26-34) PG MCHC (30-36) % RDW (11.6-14.8) % Plt Count (150-400) X10^3/uL Neut % (Auto) (50-75) % Lymph % (Auto) (25-40) % Davidson % (Auto) (3-14) % Eos % (Auto) (2-4) % Baso % (Auto) (0-2) % Neut # (Auto) (4350-4628) /uL Lymph # (Auto) (0453-3049) /uL Davidson # (Auto) (0-900) /uL Eos # (Auto) (0-450) /uL Baso # (Auto) (0-100) /uL PT (10.1-12.7) SECONDS INR (0.9-1.3) APTT (26.4-36.2) SECONDS Sodium (137-145) mmol/L Potassium (3.4-5.1) mmol/L Chloride (98-107) mmol/L Carbon Dioxide (22-32) mmol/L BUN (7-17) mg/dL Creatinine (0.52-1.04) mg/dL Estimated GFR (>60) mL/min BUN/Creatinine Ratio (6-22) Glucose (80-110) mg/dL Calcium (8.4-10.2) mg/dL Total Bilirubin (0.2-1.3) mg/dL AST (14-36) IU/L ALT (9-52) IU/L Alkaline Phosphatase (38-126) U/L Total Creatine Kinase (30-135) U/L CK-MB (CK-2) CK-MB (CK-2) Rel Index Troponin I (0.01-0.034) ng/mL Total Protein (6.3-8.2) g/dL Albumin (3.5-5.0) g/dL Globulin (1.7-4.1) g/dL Albumin/Globulin Ratio (1.0-2.8) Urine Opiates Screen Negative (Negative) Ur Oxycodone Screen Negative (Negative) Urine Methadone Screen Negative (Negative) Ur Barbiturates Screen Negative (Negative) U Tricyclic Antidepress Negative (Negative) Ur Phencyclidine Scrn Negative (Negative) Ur Amphetamines Screen Negative (Negative) U Methamphetamines Scrn Negative (Negative) Ur MDMA Scrn (Ecstasy) Negative (Negative) U Benzodiazepines Scrn Negative (Negative) Urine Cocaine Screen Negative (Negative) U Marijuana (THC) Screen Negative (Negative) Urine Dip Bedside Urine Glucose Negative Bedside Urine Bilirubin - Negative Bedside Urine Ketone - Negative Urine Specific [place] 1.010 Bedside Urine Occult Blood - Negative Bedside Urine pH 7.0 Bedside Urine Protein - Negative Bedside Urine Urobilinogen - Negative Bedside Urine Nitrite - Negative Bedside Urine Leukocytes - Negative Esterase Discharge Plan Departure Patient Disposition: Home Clinical Impression: Acute confusion Migraine with aura Qualifiers: Status migrainosus presence: without status migrainosus Intractability: intractable Qualified Code(s): G43.119 - Migraine with aura, intractable, without status migrainosus Discharge Date/Time: 04/23/19 17:13 Instructions: DI for Migraine, DI for Stroke-Ischemic, DI for Transient Ischemic Attack Activity Restrictions/Additional Instructions: Thank you for entrusting me with your care today. As discussed, your lab work and CT are negative for any concerning symptoms. It is possible your symptoms could be caused by migraine. Follow up with your primary care provider in the next week for re-evaluation. You may take Tylenol for pain, 2 tabs every 6 hours. Please return to the emergency department immediately if you developed facial droop, vision changes, limb weakness, slurred speech, syncope, chest pain, shortness of breath, or high fevers. Prescriptions: No Action prasterone (dhea) [DHEA] 25 mg capsule 25 mg PO DAILY RF: 0 varicella-zoster gE-AS01B (PF) [Shingrix (PF)] 50 mcg/0.5 mL suspension for reconstitution 50 mcg IM ONCE Qty: 1 RF: 1 conjugated estrogens [Premarin] 0.625 mg/gram cream See Rx Instructions TOP .COMPLEX RF: 0 Med/Supplement List PO RF: 0 nitrofurantoin monohyd/m-cryst 100 mg capsule 100 mg PO BID Qty: 20 RF: 0 levothyroxine 88 mcg tablet 88 mcg PO DAILY Qty: 90 RF: 3 [place] Oil See Rx Instructions .ROUTE .COMPLEX RF: 0 Referrals: Laly Benjamin PA-C [Primary Care Provider] -
[2019-04-23 15:30] VITALS: BP 122/78; PULSE 66; RESP 16; O2SAT 99
[2019-04-23 16:27] VITALS: BP 119/73; PULSE 65; RESP 13; O2SAT 96
[2019-04-23 16:45] LABS: Urine Amphetamines Negative (Negative); Urine Barbiturates Negative (Negative); Urine Benzodiazepines Negative (Negative); Urine Cocaine Negative (Negative); Urine MDMA Negative (Negative); Urine Methadone Negative (Negative); Urine Methamphetamines Negative (Negative); Urine Morphine/Opi cutoff 2000 Negative (Negative); Urine Oxycodone Negative (Negative); Urine Phencyclidine Negative (Negative); Urine Tetrahydrocannabinol Negative (Negative); Urine Tricyclic Antidepressant Negative (Negative)
[2019-04-23] MEDS: ACETAMINOPHEN 325 MG TABLET 650 MG PO (16:45)
[2019-04-23 17:12] VITALS: BP 121/76; PULSE 66; RESP 16; O2SAT 98
== END 2019-04-23 17:13 | disposition home or self-care (01) ==
PROVIDERS: Emergency Provider Nurse Practitioner; Family Provider Acupuncturist; PCP Physician Assistant
DX: R41.0 Disorientation, unspecified (principal); G43.119 Migraine with aura, intractable, without status migrainosus
CPT/HCPCS: 36591; 70450; 80053; 80305; 81003; 82550; 84484; 85025; 85610; 85730; 93005; 99283; 99285

== ENCOUNTER → 2019-05-10 14:04 | Outpatient (CLI) | payer MEDICARE, OTHER, SELFPAY ==
--- NOTE | 2019-05-10 14:06 | DI.MRI.S_ITS ---
PROCEDURE: MR HEAD/BRAIN WO CON INDICATIONS: Episode of confusion TECHNIQUE: Non-contrast axial T1 spin echo, axial T2 fast spin echo, sagittal and axial FLAIR, coronal T2 fast spin echo, axial gradient echo, axial diffusion and ADC through the brain. COMPARISON: None. FINDINGS: Image quality: Excellent. CSF spaces: Ventricles appear symmetric in size and shape. Basal cisterns are patent. No extra-axial fluid collections. Brain: No intracranial bleeds or mass effects. There is mild cerebral volume loss for age. There are minimal periventricular and deep white matter chronic small vessel ischemic changes. Brainstem appears normal. Diffusion-weighted images show no acute ischemic insults. No chronic ischemic insults. No GRE weighted abnormalities identified in the brain parenchyma. Normal intravascular flow voids are present. Skull and face: Calvarial bone marrow is normal in signal. Orbits are normal. Sinuses: Sinuses and mastoids are clear. IMPRESSION: 1. No acute intracranial disease process. 2. No abnormal intracranial mass. 3. No areas of acute or chronic infarction. 4. Mild, diffuse cerebral volume loss. 5. Minimal periventricular and subcortical white matter chronic microvascular ischemic change. Dictated by: Laura Jonas MD, PhD on 05/10/2019 at 15:42 Approved by: Laura Jonas MD, PhD on 05/10/2019 at 15:46
== END ==
PROVIDERS: Family Provider Acupuncturist; PCP Physician Assistant; Visit Provider Hospitalist
DX: R41.0 Disorientation, unspecified (principal)
CPT/HCPCS: 70551

== ENCOUNTER 2019-05-24 07:59 | Emergency (ER) | payer MEDICARE, OTHER, SELFPAY ==
[2019-05-24 08:00] VITALS: BP 135/69; PULSE 69; RESP 12; TEMP 36.3; O2SAT 96
--- NOTE | 2019-05-24 08:15 | DI.RAD.S_ITS ---
PROCEDURE: XR CHEST 1V INDICATIONS: chest pain TECHNIQUE: One view of the chest was acquired. COMPARISON: [facility], CR, CHEST 2 VIEW, 11/02/2007, 15:35. [facility], CT, CHEST/ABD/PEL WITH CONTRAST, 11/27/2015, 9:28. FINDINGS: Surgical changes and devices: None. Lungs and pleura: Hyperinflation consistent with COPD. There is diffuse interstitial prominence, which is unchanged. No focal consolidation or pleural effusion. No pneumothorax. Mediastinum: Mediastinal contours appear normal. Heart size is normal. Bones and chest wall: No suspicious bony lesions. Overlying soft tissues appear unremarkable. IMPRESSION: No acute cardiopulmonary disease. COPD. Dictated by: Nate Ramírez M.D. on 05/24/2019 at 8:45 Approved by: Nate Ramírez M.D. on 05/24/2019 at 8:47
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
[2019-05-24 08:25] LABS: Add Manual Diff / Slide Review NO; Basophils Absolute Auto 0 /uL (0-100); Basophils Percent Auto 0.9 % (0-2); Eosinophils Absolute Auto 100 /uL (0-450); Eosinophils Percent Auto 3.1 % (2-4); Hematocrit 41.8 % (36-46); Hemoglobin 14.3 g/dL (12.0-16.0); Lymphocytes Absolute Auto 1700 /uL (1100-4500); Lymphocytes Percent Auto 39.8 % (25-40); Mean Corpuscular HGB Conc 34.2 % (30-36); Mean Corpuscular Hemoglobin 30.9 PG (26-34); Mean Corpuscular Volume 90.4 fL (80-100); Monocytes Absolute Auto 300 /uL (0-900); Monocytes Percent Auto 7.9 % (3-14); Neutrophils Absolute Auto 2000 /uL (1500-7000); Neutrophils Percent Auto 48.3 % (50-75); Platelet Count 245 X10^3/uL (150-400); Red Blood Cell Count 4.63 X10^6/uL (4.0-5.2); Red Cell Distribution Width 13.4 % (11.6-14.8); White Blood Cell Count 4.2 X10^3/uL (4.5-11.0)
[2019-05-24] MEDS: SODIUM CHLORIDE 0.9% 1,000 ML 150 ML IV (08:28)
[2019-05-24] MEDS: ASPIRIN 81 MG CHEW TAB 324 MG PO (08:28)
[2019-05-24 08:30] VITALS: BP 144/63; PULSE 69; RESP 17; O2SAT 97
[2019-05-24 08:32] LABS: D Dimer < 200 ng/mL (<230)
[2019-05-24 08:33] LABS: Alanine Aminotransferase 19 IU/L (9-52); Albumin 4.3 g/dL (3.5-5.0); Albumin Globulin Ratio 1.5 (1.0-2.8); Alkaline Phosphatase 88 U/L (38-126); Aspartate Aminotransferase 22 IU/L (14-36); BUN Creatinine Ratio 25.7 (6-22); Bilirubin Total 0.6 mg/dL (0.2-1.3); Blood Urea Nitrogen 18 mg/dL (7-17); Calcium 8.9 mg/dL (8.4-10.2); Carbon Dioxide 29 mmol/L (22-32); Chloride 103 mmol/L (98-107); Creatine Kinase 51 U/L (30-135); Estimated Glomerular Filt Rate > 60.0 mL/min (>60); Globulin 2.9 g/dL (1.7-4.1); Glucose 91 mg/dL (80-110); HEMOLYSIS < 15 (0-50); Lipase 115 U/L (23-300); Potassium 3.8 mmol/L (3.4-5.1); Sodium 140 mmol/L (137-145); Total Protein 7.2 g/dL (6.3-8.2)
[2019-05-24 08:38] LABS: B Type Natriuretic Peptide < 100 (<100)
[2019-05-24 08:45] LABS: Troponin I < 0.012 ng/mL (0.01-0.034)
[2019-05-24 09:00] VITALS: BP 132/75; PULSE 60; RESP 16; O2SAT 98
[2019-05-24 09:30] VITALS: BP 133/71; PULSE 64; RESP 16; O2SAT 98
[2019-05-24 10:00] VITALS: BP 145/68; PULSE 67; RESP 14; O2SAT 98
== END 2019-05-24 10:15 | disposition home or self-care (01) ==
PROVIDERS: Emergency Provider Emergency Medicine; Family Provider Acupuncturist; PCP Physician Assistant
DX: R07.89 Other chest pain (principal)
CPT/HCPCS: 36415; 71045; 80053; 82550; 83690; 83880; 84484; 85025; 85379; 93005; 93041; 96360; 96361; 99283; 99285

== ENCOUNTER → 2019-09-13 09:52 | Outpatient (CLI) | payer MEDICARE, OTHER, SELFPAY ==
[2019-09-13 11:56] LABS: Vitamin D 25 Hydroxy (D3) 59.6 ng/mL (30.0-100.0)
== END ==
PROVIDERS: PCP Physician Assistant; Visit Provider Physician Assistant
DX: M81.0 Age-related osteoporosis without current pathological fracture (principal)
CPT/HCPCS: 36415; 82306

== ENCOUNTER → 2019-10-17 15:57 | Outpatient (CLI) | payer MEDICARE, OTHER, SELFPAY ==
--- NOTE | 2019-10-17 16:00 | DI.RAD.S_ITS ---
PROCEDURE: XR CHEST 2V INDICATIONS: cough, wheeze, ronchi TECHNIQUE: 2 views of the chest were acquired. COMPARISON: [facility], , XR CHEST 1V, 05/24/2019, 8:33. [facility], CR, CHEST 2 VIEW, 11/02/2007, 15:35. FINDINGS: Surgical changes and devices: None. Lungs and pleura: Lungs are abnormal, with a mild degree of interstitial prominence and relatively large lung volumes consistent with COPD, previously present. No pleural effusions or pneumothorax. Mediastinum: Mediastinal contours are normal. Heart size is normal. Bones and chest wall: No suspicious bony abnormalities. Soft tissues appear unremarkable. IMPRESSION: Suspect COPD but no pneumonia found. Dictated by: Avery Mast M.D. on 10/17/2019 at 16:26 Approved by: Avery Mast M.D. on 10/17/2019 at 16:27
[2019-10-17 16:27] LABS: Add Manual Diff / Slide Review NO; Basophils Absolute Auto 0 /uL (0-100); Basophils Percent Auto 0.7 % (0-2); Eosinophils Absolute Auto 100 /uL (0-450); Eosinophils Percent Auto 2.4 % (2-4); Hematocrit 40.5 % (36-46); Lymphocytes Absolute Auto 1800 /uL (1100-4500); Lymphocytes Percent Auto 29.2 % (25-40); Mean Corpuscular HGB Conc 34.5 % (30-36); Mean Corpuscular Hemoglobin 30.4 PG (26-34); Mean Corpuscular Volume 88.2 fL (80-100); Monocytes Absolute Auto 500 /uL (0-900); Monocytes Percent Auto 8.4 % (3-14); Neutrophils Absolute Auto 3600 /uL (1500-7000); Neutrophils Percent Auto 59.3 % (50-75); Platelet Count 213 X10^3/uL (150-400); Red Blood Cell Count 4.59 X10^6/uL (4.0-5.2); Red Cell Distribution Width 13.1 % (11.6-14.8); White Blood Cell Count 6.1 X10^3/uL (4.5-11.0)
[2019-10-17 16:45] LABS: BUN Creatinine Ratio 25.7 (6-22); Blood Urea Nitrogen 18 mg/dL (7-17); Calcium 9.5 mg/dL (8.4-10.2); Carbon Dioxide 29 mmol/L (22-32); Chloride 101 mmol/L (98-107); Estimated Glomerular Filt Rate > 60.0 mL/min (>60); Glucose 92 mg/dL (80-110); HEMOLYSIS < 15 (0-50); Potassium 3.8 mmol/L (3.4-5.1); Sodium 138 mmol/L (137-145)
[2019-10-17 16:49] LABS: Influenza A - CEPHEID Flu A NEGATIVE (NEGATIVE); Influenza B - CEPHEID Flu B NEGATIVE (NEGATIVE)
[2019-10-17 17:01] LABS: Free T3, Triiodothyronine Free 2.05 pg/mL (2.77-5.27); Free T4, Direct Thyroxine 1.46 ng/dL (0.78-2.19)
[2019-10-17 17:14] LABS: Thyroid Stimulating Hormone 2.93 uIU/mL (0.47-4.68)
== END ==
PROVIDERS: PCP Family Medicine; Referring Provider Family Medicine; Visit Provider Family Medicine
DX: J18.9 Pneumonia, unspecified organism (principal); E03.9 Hypothyroidism, unspecified; J11.1 Influenza due to unidentified influenza virus with other respiratory manifestations; R05 Cough; R06.2 Wheezing
CPT/HCPCS: 36415; 71046; 80048; 84439; 84443; 84481; 85025; 87502

== ENCOUNTER → 2019-12-13 11:15 | Outpatient (CLI) | payer MEDICARE, OTHER, SELFPAY ==
[2019-12-13 12:59] LABS: Free T3, Triiodothyronine Free 2.55 pg/mL (2.77-5.27)
[2019-12-13 13:22] LABS: Thyroid Stimulating Hormone 0.78 uIU/mL (0.47-4.68)
[2019-12-16 20:36] LABS: Triiodothyronine T3 Reverse 25.7 ng/dL (9.2-24.1)
== END ==
PROVIDERS: PCP Family Medicine; Referring Provider Family Medicine; Visit Provider Family Medicine
DX: E03.9 Hypothyroidism, unspecified (principal)
CPT/HCPCS: 36415; 84439; 84443; 84481; 84482

== ENCOUNTER → 2019-12-22 09:05 | Outpatient (CLI) | payer MEDICARE, OTHER, SELFPAY ==
[2019-12-23 07:08] LABS: Thyroid Peroxidase Antibodies <9 IU/mL (0-34)
[2019-12-24 16:07] LABS: Anti Thyroglobulin Antibody <1.0 IU/mL (0.0-0.9)
== END ==
PROVIDERS: PCP Family Medicine; Referring Provider Family Medicine; Visit Provider Family Medicine
DX: E03.9 Hypothyroidism, unspecified (principal)
CPT/HCPCS: 36415; 86376; 86800

== ENCOUNTER → 2020-05-28 07:59 | Outpatient (CLI) | payer MEDICARE, OTHER, SELFPAY ==
--- NOTE | 2020-05-28 | DI.MG.S_ITS ---
BILATERAL DIGITAL SCREENING MAMMOGRAM 3D/2D WITH CAD: 05/28/2020 CLINICAL: Routine screening. Family history of breast cancer. Comparison is made to exams dated: 11/30/2018 mammogram - [facility], 09/29/2017 mammogram, and 02/05/2016 mammogram - [facility]. The tissue of both breasts is heterogeneously dense. This may lower the sensitivity of mammography. Current study was also evaluated with a Computer Aided Detection (CAD) system. No significant masses, calcifications, or other findings are seen in either breast. There has been no significant interval change. IMPRESSION: NEGATIVE There is no mammographic evidence of malignancy. A 1 year screening mammogram is recommended. This exam was interpreted at Station ID: [id number]. NOTE: For mammograms, a report in lay terms will be sent to the patient. Approximately 15% of breast malignancies will not be visualized mammographically. In the management of a palpable breast mass, a negative mammogram must not discourage biopsy of a clinically suspicious lesion. Electronically Signed By: Jonathon nunn/ashwini:05/28/2020 08:54:38 letter sent: Normal Exam ACR BI-RADS Category 1: Negative 3341F
== END ==
PROVIDERS: PCP Family Medicine; Referring Provider Family Medicine; Visit Provider Family Medicine
DX: Z12.31 Encounter for screening mammogram for malignant neoplasm of breast (principal); Z80.3 Family history of malignant neoplasm of breast
CPT/HCPCS: 77063; 77067

== ENCOUNTER → 2020-11-06 08:05 | Outpatient (CLI) | payer MEDICARE, OTHER, SELFPAY ==
[2020-11-06 09:12] LABS: Alanine Aminotransferase 15 IU/L (<35); Albumin 4.3 g/dL (3.5-5.0); Albumin Globulin Ratio 1.6 (1.0-2.8); Alkaline Phosphatase 63 U/L (38-126); Aspartate Aminotransferase 29 IU/L (14-36); BUN Creatinine Ratio 27.8 (6-22); Bilirubin Total 0.6 mg/dL (0.2-1.3); Blood Urea Nitrogen 20 mg/dL (7-17); Carbon Dioxide 30 mmol/L (22-32); Chloride 104 mmol/L (98-107); Cholesterol 195 mg/dL (140-199); Estimated Glomerular Filt Rate > 60.0 mL/min (>60); Globulin 2.7 g/dL (1.7-4.1); Glucose 98 mg/dL (80-110); HDL Cholesterol 101 mg/dL (40-60); HEMOLYSIS 15 (0-50); LDL Cholesterol Calculated 85 mg/dL (<100); Potassium 4.6 mmol/L (3.4-5.1); Sodium 138 mmol/L (137-145); Triglycerides 45 mg/dL (35-150)
[2020-11-06 10:13] LABS: TSH w/ Reflex to FT4 1.49 uIU/mL (0.47-4.68)
== END ==
PROVIDERS: PCP Family Medicine; Referring Provider Family Medicine; Visit Provider Family Medicine
DX: E78.5 Hyperlipidemia, unspecified (principal); E03.9 Hypothyroidism, unspecified
CPT/HCPCS: 36415; 80053; 80061; 84443

== ENCOUNTER → 2021-05-31 12:44 | Outpatient (CLI) | payer MEDICARE, OTHER, SELFPAY | PROVIDERS: PCP Family Medicine; Referring Provider Family Medicine; Visit Provider Family Medicine | DX: J02.9 Acute pharyngitis, unspecified (principal) | CPT/HCPCS: 87070 ==

== ENCOUNTER → 2021-06-11 11:02 | Outpatient (CLI) | payer MEDICARE, OTHER, SELFPAY ==
--- NOTE | 2021-06-11 | DI.MG.S_ITS ---
BILATERAL DIGITAL SCREENING MAMMOGRAM 3D/2D WITH CAD: 06/11/2021 CLINICAL: Routine screening. Family history of breast cancer. Comparison is made to exams dated: 05/28/2020 mammogram, 11/30/2018 mammogram - [facility], and 09/29/2017 mammogram - [facility]. The tissue of both breasts is heterogeneously dense. This may lower the sensitivity of mammography. Current study was also evaluated with a Computer Aided Detection (CAD) system. There are mole markers on both breasts. No significant masses, calcifications, or other findings are seen in either breast. There has been no significant interval change. IMPRESSION: NEGATIVE There is no mammographic evidence of malignancy. A 1 year screening mammogram is recommended. This exam was interpreted at Station ID: [id number]. NOTE: For mammograms, a report in lay terms will be sent to the patient. Approximately 15% of breast malignancies will not be visualized mammographically. In the management of a palpable breast mass, a negative mammogram must not discourage biopsy of a clinically suspicious lesion. Electronically Signed By: Toby Rdz acr/aaronrad:06/11/2021 11:34:45 letter sent: Normal Exam ACR BI-RADS Category 1: Negative [id number]
--- NOTE | 2021-06-11 11:04 | DI.RAD.S_ITS ---
PROCEDURE: XR DEXA AXIAL SKELETON INDICATIONS: osteoporosis COMPARISON: [facility], CR, XR DEXA AXIAL SKELETON, 11/30/2018, 14:57. FINDINGS: This blank DEXA report has been sent in error by the PACS system. The correct and complete report will be forthcoming in 1-2 days. Thank you for your patience and understanding. Dictated by: Laura Jonas MD, PhD on 06/11/2021 at 13:10 Approved by: Laura Jonas MD, PhD on 06/11/2021 at 13:10
== END ==
PROVIDERS: PCP Family Medicine; Referring Provider Family Medicine; Visit Provider Family Medicine
DX: Z80.3 Family history of malignant neoplasm of breast (principal); Z12.31 Encounter for screening mammogram for malignant neoplasm of breast; M81.0 Age-related osteoporosis without current pathological fracture; Z78.0 Asymptomatic menopausal state; Z90.722 Acquired absence of ovaries, bilateral; Z85.42 Personal history of malignant neoplasm of other parts of uterus; Z82.62 Family history of osteoporosis
CPT/HCPCS: 77063; 77067; 77080

== ENCOUNTER → 2021-11-14 11:44 | Outpatient (CLI) | payer MEDICARE, OTHER, SELFPAY | PROVIDERS: PCP Family Medicine; Referring Provider Family Medicine; Visit Provider Family Medicine | DX: I49.9 Cardiac arrhythmia, unspecified (principal) | CPT/HCPCS: 93005 ==

== ENCOUNTER → 2021-11-21 13:35 | Outpatient (CLI) | payer MEDICARE, OTHER, SELFPAY ==
--- NOTE | 2021-12-10 14:17 | PM.CARDMON.1 ---
[employer] Report Referral & Results Date Patient Seen: 11/21/21 Requesting provider: Ita Faulkner Indication: Palpitations Duration of monitoring (days): 7 Diary information: There were 6 patient triggered events and 0 patient diary entries Patient triggered events were variably associated with sinus rhythm, PVCs and ventricular trigeminy Data: Minimum heart rate identified was 54 beats per minute at 05:24 on 11/23/2021 Maximum sinus heart rate was 132 beats per minute at 15:39 on 11/24/2021 Maximum overall heart rate was 171 beats per minute at 16:09 on 11/23/2021 during a run of SVT Less than 1% of identified beats were supraventricular ectopic in origin Approximately 3.4% of identified beats were ventricular ectopic in origin which classify them as occasional There were 2 runs of SVT noted the fastest being a 14 beat run with a rate of 171 beats per minute which was also the longest run No pauses of 3 seconds or longer or episodes of atrial fibrillation were identified on this study Impression: 6+ day gambling monitor demonstrating probable PVCs as a source of patient's symptoms of palpitations Clinical correlation suggested but no other significant dysrhythmias identified
== END ==
PROVIDERS: PCP Family Medicine; Referring Provider Family Medicine; Visit Provider Family Medicine
DX: R00.2 Palpitations (principal); I49.9 Cardiac arrhythmia, unspecified
CPT/HCPCS: 93242; 93244

== ENCOUNTER → 2022-01-09 11:16 | Outpatient (CLI) | payer MEDICARE, OTHER, SELFPAY ==
[2022-01-09 12:01] LABS: Hematocrit 40.9 % (36-46); Hemoglobin 13.7 g/dL (12.0-16.0); Mean Corpuscular HGB Conc 33.4 % (30-36); Mean Corpuscular Hemoglobin 29.9 PG (26-34); Mean Corpuscular Volume 89.5 fL (80-100); Platelet Count 209 X10^3/uL (150-400); Red Blood Cell Count 4.57 X10^6/uL (4.0-5.2); Red Cell Distribution Width 13.7 % (11.6-14.8)
[2022-01-09 12:06] LABS: Alanine Aminotransferase 17 IU/L (<35); Albumin 4.3 g/dL (3.5-5.0); Albumin Globulin Ratio 1.5 (1.0-2.8); Alkaline Phosphatase 66 U/L (38-126); Aspartate Aminotransferase 26 IU/L (14-36); BUN Creatinine Ratio 27.8 (6-22); Bilirubin Total 0.5 mg/dL (0.2-1.3); Blood Urea Nitrogen 20 mg/dL (7-17); Calcium 8.9 mg/dL (8.4-10.2); Carbon Dioxide 31 mmol/L (22-32); Chloride 103 mmol/L (98-107); Estimated Glomerular Filt Rate > 60 mL/min (>60); Globulin 2.8 g/dL (1.7-4.1); Glucose 103 mg/dL (80-110); HEMOLYSIS < 15 (0-50); Potassium 4.1 mmol/L (3.4-5.1); Sodium 139 mmol/L (137-145); Total Protein 7.1 g/dL (6.3-8.2)
[2022-01-09 12:38] LABS: TSH w/ Reflex to FT4 0.17 uIU/mL (0.47-4.68)
[2022-01-09 14:38] LABS: Neutrophils Absolute Manual 2200 /uL (3000-5900); RBC Morphology Normal Morphology; Total Cells Counted 100
== END ==
PROVIDERS: PCP Family Medicine; Referring Provider Family Medicine; Visit Provider Family Medicine
DX: E03.9 Hypothyroidism, unspecified (principal); I49.9 Cardiac arrhythmia, unspecified; Z81.8 Family history of other mental and behavioral disorders
CPT/HCPCS: 36415; 80053; 84439; 84443; 85025

== ENCOUNTER → 2022-04-28 12:23 | Outpatient (CLI) | payer MEDICARE, OTHER, SELFPAY ==
[2022-04-28 14:50] LABS: Free T3, Triiodothyronine Free 2.84 pg/mL (2.77-5.27); Free T4, Direct Thyroxine 1.52 ng/dL (0.78-2.19)
[2022-04-28 15:04] LABS: TSH w/ Reflex to FT4 0.39 uIU/mL (0.47-4.68); Thyroid Stimulating Hormone 0.394 uIU/mL (0.47-4.68)
== END ==
PROVIDERS: PCP Pediatrics; Referring Provider Pediatrics; Visit Provider Pediatrics
DX: E03.9 Hypothyroidism, unspecified (principal)
CPT/HCPCS: 36415; 84439; 84443; 84481

== ENCOUNTER → 2022-05-06 08:27 | Outpatient (CLI) | payer MEDICARE, OTHER, SELFPAY ==
--- NOTE | 2022-05-06 08:29 | DI.US.S_ITS ---
ULTRASOUND OF LEFT BREAST AND AXILLA: 05/06/2022 CLINICAL: Palpable left breast lump. Comparison is made to exams dated: 05/06/2022 mammogram, 06/11/2021 mammogram, and 05/28/2020 mammogram - [facility]. Color flow and real-time ultrasound of the left breast axilla were performed. Mcnally scale images of the real-time examination were reviewed. No significant abnormalities were seen sonographically in the left breast. IMPRESSION: NEGATIVE There is no sonographic evidence of malignancy. There is no abnormality seen in the left breast to correspond with the area of clinical concern and patient directed area of palpable concern in the upper outer quadrant, however, recommend clinical follow up for persistent or worsening symptoms, or development of any clinically suspicious findings. A 1 year screening mammogram is recommended. Findings and recommendations were conveyed to the patient during today's evaluation. This exam was interpreted at Station ID: [id number]. Electronically Signed By: Jonathon Levy M.D. aty/:05/06/2022 09:53:55 letter sent: Clinical Evaluation Ultrasound BI-RADS: 1 Negative
--- NOTE | 2022-05-06 08:29 | DI.MG.S_ITS ---
BILATERAL DIGITAL DIAGNOSTIC MAMMOGRAM 3D/2D: 05/06/2022 CLINICAL: Left breast lump. Comparison is made to exams dated: 06/11/2021 mammogram, 05/28/2020 mammogram, and 11/30/2018 mammogram - [facility]. Both breasts are heterogeneously dense, which may obscure small masses (category c / 51-75% glandular tissue). No significant masses, calcifications, or other findings are seen in either breast. IMPRESSION: INCOMPLETE: NEEDS ADDITIONAL IMAGING EVALUATION There is no abnormality seen in the left breast to correspond with the area of clinical concern and palpable abnormality indicated by triangular marker at 12 o'clock, however, an ultrasound is recommended for further evaluation and is scheduled to immediately follow this examination. Based on the Tyrer Cuzick model (a risk assessment model) the patient's lifetime risk is 6.9% and her 10 year risk is 0.0%. According to the ACR, ACS, and NCCN guidelines, an annual breast MRI exam along with mammogram is recommended if the patient's lifetime risk is 20% or greater. This exam was interpreted at Station ID: [id number]. NOTE: For mammograms, a report in lay terms will be sent to the patient. Approximately 15% of breast malignancies will not be visualized mammographically. In the management of a palpable breast mass, a negative mammogram must not discourage biopsy of a clinically suspicious lesion. Electronically Signed By: Jonathon Levy M.D. aty/:05/06/2022 09:18:38 ACR BI-RADS Category 0: Incomplete [id number]
== END ==
PROVIDERS: PCP Pediatrics; Referring Provider Pediatrics; Visit Provider Pediatrics
DX: R92.8 Other abnormal and inconclusive findings on diagnostic imaging of breast (principal); N63.20 Unspecified lump in the left breast, unspecified quadrant
CPT/HCPCS: 76642; 77066; G0279

== ENCOUNTER → 2023-02-24 07:57 | Outpatient (CLI) | payer MEDICARE, OTHER, SELFPAY ==
[2023-02-24 09:30] LABS: Add Manual Diff / Slide Review NO; Basophils Absolute Auto 0 /uL (0-100); Basophils Percent Auto 0.8 % (0-2); Eosinophils Absolute Auto 200 /uL (0-450); Hematocrit 41.3 % (36-46); Hemoglobin 14.3 g/dL (12.0-16.0); Lymphocytes Absolute Auto 1400 /uL (1100-4500); Lymphocytes Percent Auto 38.5 % (25-40); Mean Corpuscular HGB Conc 34.6 % (30-36); Mean Corpuscular Hemoglobin 30.9 PG (26-34); Mean Corpuscular Volume 89.3 fL (80-100); Monocytes Absolute Auto 300 /uL (0-900); Monocytes Percent Auto 9.2 % (3-14); Neutrophils Absolute Auto 1700 /uL (1500-7000); Neutrophils Percent Auto 45.5 % (50-75); Platelet Count 202 X10^3/uL (150-400); Red Blood Cell Count 4.63 X10^6/uL (4.0-5.2); White Blood Cell Count 3.7 X10^3/uL (4.5-11.0)
[2023-02-24 09:43] LABS: Alanine Aminotransferase 16 IU/L (<35); Albumin Globulin Ratio 1.6 (1.0-2.8); Alkaline Phosphatase 64 U/L (38-126); Aspartate Aminotransferase 23 IU/L (14-36); BUN Creatinine Ratio 20.5 (6-22); Bilirubin Total 0.7 mg/dL (0.2-1.3); Blood Urea Nitrogen 16 mg/dL (7-17); Calcium 8.7 mg/dL (8.4-10.2); Carbon Dioxide 28 mmol/L (22-32); Chloride 104 mmol/L (98-107); Cholesterol 185 mg/dL (140-199); Estimated Glomerular Filt Rate > 60 mL/min (>60); Globulin 2.5 g/dL (1.7-4.1); Glucose 91 mg/dL (80-110); HDL Cholesterol 102 mg/dL (40-60); HEMOLYSIS < 15 (0-50); LDL Cholesterol Calculated 74 mg/dL (<100); Potassium 4.2 mmol/L (3.4-5.1); Sodium 138 mmol/L (137-145); Total Protein 6.5 g/dL (6.3-8.2); Triglycerides 46 mg/dL (35-150)
[2023-02-24 09:47] LABS: High Sensitivity CRP - Cardiac < 0.3 mg/L (1.0-3.0)
[2023-02-24 09:57] LABS: Vitamin D 25 Hydroxy (D3) 69.6 ng/mL (30.0-100.0)
[2023-02-24 09:59] LABS: Free T4, Direct Thyroxine 1.91 ng/dL (0.78-2.19)
[2023-02-24 10:12] LABS: Thyroid Stimulating Hormone 0.694 uIU/mL (0.47-4.68)
== END ==
PROVIDERS: PCP Family Medicine; Referring Provider Family Medicine; Visit Provider Family Medicine
DX: E03.9 Hypothyroidism, unspecified (principal); M81.0 Age-related osteoporosis without current pathological fracture; Z00.00 Encounter for general adult medical examination without abnormal findings; N95.2 Postmenopausal atrophic vaginitis; E78.5 Hyperlipidemia, unspecified
CPT/HCPCS: 36415; 80053; 80061; 82306; 84439; 84443; 84481; 85025; 86140

== ENCOUNTER → 2023-05-12 08:10 | Outpatient (CLI) | payer MEDICARE, OTHER, SELFPAY ==
--- NOTE | 2023-05-12 | DI.MG.S_ITS ---
BILATERAL DIGITAL SCREENING MAMMOGRAM 3D/2D WITH CAD: 05/12/2023 CLINICAL: Routine screening. Family history of breast cancer. Comparison is made to exams dated: 05/06/2022 mammogram, 06/11/2021 mammogram, and 05/28/2020 mammogram - [facility]. Both breasts are heterogeneously dense, which may obscure small masses (category c / 51-75% glandular tissue). Current study was also evaluated with a Computer Aided Detection (CAD) system. No significant masses, calcifications, or other findings are seen in either breast. There has been no significant interval change. IMPRESSION: NEGATIVE There is no mammographic evidence of malignancy. A 1 year screening mammogram is recommended. Based on the Tyrer Cuzick model (a risk assessment model) the patient's lifetime risk is 3.3% and her 10 year risk is 0.0%. According to the ACR, ACS, and NCCN guidelines, an annual breast MRI exam along with mammogram is recommended if the patient's lifetime risk is 20% or greater. This exam was interpreted at Station ID: [id number]. NOTE: For mammograms, a report in lay terms will be sent to the patient. Approximately 15% of breast malignancies will not be visualized mammographically. In the management of a palpable breast mass, a negative mammogram must not discourage biopsy of a clinically suspicious lesion. Electronically Signed By: Cris min/ashwini:05/12/2023 14:26:22 letter sent: Normal Exam ACR BI-RADS Category 1: Negative [id number]
== END ==
PROVIDERS: PCP Family Medicine; Referring Provider Family Medicine; Visit Provider Family Medicine
DX: Z12.31 Encounter for screening mammogram for malignant neoplasm of breast (principal); Z80.3 Family history of malignant neoplasm of breast
CPT/HCPCS: 77063; 77067

== ENCOUNTER 2024-01-19 08:39 | Day surgery (SDC) | payer MEDICARE, OTHER, SELFPAY ==
[2024-01-19] MEDS: LACTATED RINGERS 1,000 ML 42 ML IV (09:12)
[2024-01-19 09:20] VITALS: BP 133/83; PULSE 77; RESP 18; TEMP 36.3; O2SAT 96
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
[2024-01-19 10:25] VITALS: BP 106/75; PULSE 69; RESP 17; TEMP 36.4; O2SAT 96
[2024-01-19 10:30] VITALS: BP 116/78; PULSE 67; RESP 18; O2SAT 97
[2024-01-19 10:35] VITALS: BP 135/78; PULSE 77; RESP 15; O2SAT 96
--- NOTE | 2024-01-19 10:36 | P.OP.COLON_ITS ---
Operative Date/Time/Diagnoses Date of procedure: 01/19/24 Time of procedure: 10:36 Pre-op diagnosis: Personal history of colonic polyps Procedure & Clinicians Study performed: Screening colonoscopy Same procedure as scheduled: Yes Indications: Colorectal screening Surgeon: Jose Howell Procedure Notes Procedure in detail: The history and physical was performed/updated and the patient is ASA class is 2. The procedure was discussed in detail with the patient. Potential risks complications including infection, bleeding, missed diagnosis, perforation, need for surgery, and were explained. Their questions were answered and informed consent was obtained. Patient was brought to the procedure room and placed standard monitoring equipment. The patient's vital signs were monitored continuously throughout the entire procedure. Prior to starting time-out was performed. The patient was placed in the left lateral recumbent position. Procedural sedation was administered by anesthesia. Examination began with a thorough inspection of the perianal area there was no evidence of fissures, fistulae, external hemorrhoids or cutaneous malignancy. The colonoscopy scope was then placed into the anal canal and was advanced to the cecum, which was identified by the ileocecal valve, the appendiceal orifice and the confluence of the taenia. The scope was then slowly withdrawn examining colon thoroughly in all directions, irrigating it of any residual stool. The scope was retroflexed within the rectum The patient tolerated the procedure well. They will be discharged once criteria are met. The prep was of good/excellent quality. The withdrawl time was 6 minutes. FINDINGS * Unremarkable colonoscopy. Normal healthy colonic mucosa without masses or polyps. * Descending colon mild diverticulosis * Internal hemorrhoids Specimen(s): none sent Impression: Diverticulosis Post-procedure Recommendations: High fiber diet Plan for aftercare: No further colonoscopy necessary unless symptomatic Disposition: same day surgery
[2024-01-19 10:41] VITALS: BP 130/83; PULSE 70; RESP 16; TEMP 36.4; O2SAT 98
== END 2024-01-19 11:02 | disposition home or self-care (01) ==
PROVIDERS: PCP Family Medicine; Referring Provider Surgery; Visit Provider Surgery
PROC: 0DJD8ZZ Inspection of Lower Intestinal Tract, Via Natural or Artificial Opening Endoscopic (ICD-10-PCS; CPT 45378; principal; 2024-01-19 09:45)
DX: Z12.11 Encounter for screening for malignant neoplasm of colon (principal); Z86.010 Personal history of colon polyps; K57.30 Diverticulosis of large intestine without perforation or abscess without bleeding; K64.8 Other hemorrhoids
CPT/HCPCS: G0105; J2704

== ENCOUNTER → 2024-03-01 07:25 | Outpatient (CLI) | payer MEDICARE, OTHER, SELFPAY ==
[2024-03-01 08:56] LABS: Alanine Aminotransferase 15 IU/L (<35); Albumin 4.2 g/dL (3.5-5.0); Albumin Globulin Ratio 1.8 (1.0-2.8); Alkaline Phosphatase 66 U/L (38-126); Aspartate Aminotransferase 23 IU/L (14-36); BUN Creatinine Ratio 24.3 (6-22); Bilirubin Total 0.8 mg/dL (0.2-1.3); Blood Urea Nitrogen 18 mg/dL (7-17); Calcium 8.9 mg/dL (8.4-10.2); Carbon Dioxide 29 mmol/L (22-32); Chloride 106 mmol/L (98-107); Estimated Glomerular Filt Rate > 60 mL/min (>60); Globulin 2.4 g/dL (1.7-4.1); Glucose 92 mg/dL (80-110); HEMOLYSIS < 15 (0-50); Sodium 138 mmol/L (137-145); Total Protein 6.6 g/dL (6.3-8.2)
[2024-03-01 09:01] LABS: Add Manual Diff / Slide Review NO; Basophils Absolute Auto 0 /uL (0-100); Basophils Percent Auto 0.8 % (0-2); Eosinophils Absolute Auto 100 /uL (0-450); Eosinophils Percent Auto 2.3 % (2-4); Hematocrit 40.7 % (36-46); Hemoglobin 13.7 g/dL (12.0-16.0); Lymphocytes Absolute Auto 1600 /uL (1100-4500); Lymphocytes Percent Auto 38.2 % (25-40); Mean Corpuscular HGB Conc 33.8 % (30-36); Mean Corpuscular Volume 91.7 fL (80-100); Monocytes Absolute Auto 400 /uL (0-900); Monocytes Percent Auto 8.9 % (3-14); Neutrophils Absolute Auto 2100 /uL (1500-7000); Neutrophils Percent Auto 49.8 % (50-75); Platelet Count 227 X10^3/uL (150-400); Red Blood Cell Count 4.44 X10^6/uL (4.0-5.2); Red Cell Distribution Width 13.2 % (11.6-14.8); White Blood Cell Count 4.3 X10^3/uL (4.5-11.0)
[2024-03-01 09:50] LABS: TSH w/ Reflex to FT4 0.64 uIU/mL (0.47-4.68)
== END ==
PROVIDERS: PCP Family Medicine; Referring Provider Family Medicine; Visit Provider Family Medicine
DX: D72.819 Decreased white blood cell count, unspecified (principal); E03.9 Hypothyroidism, unspecified
CPT/HCPCS: 36415; 80053; 84443; 85025

== ENCOUNTER → 2024-06-07 10:59 | Outpatient (CLI) | payer MEDICARE, OTHER, SELFPAY ==
--- NOTE | 2024-06-07 11:01 | DI.MG.S_ITS ---
BILATERAL DIGITAL SCREENING MAMMOGRAM 3D/2D WITH CAD: 06/07/2024 CLINICAL: Routine screening. Family history of breast cancer. Comparison is made to exams dated: 05/12/2023 mammogram, 05/06/2022 mammogram, 06/11/2021 mammogram, 05/28/2020 mammogram, and 11/30/2018 mammogram - [facility]. The breasts are heterogeneously dense, which may obscure small masses (category c / 51-75% glandular tissue). Current study was also evaluated with a Computer Aided Detection (CAD) system. No significant masses, calcifications, or other findings are seen in either breast. There has been no significant interval change. IMPRESSION: NEGATIVE There is no mammographic evidence of malignancy. A 1 year screening mammogram is recommended. Based on the Tyrer Cuzick model (a risk assessment model) the patient's lifetime risk is 2.5% and her 10 year risk is 0.0%. According to the ACR, ACS, and NCCN guidelines, an annual breast MRI exam along with mammogram is recommended if the patient's lifetime risk is 20% or greater. This exam was interpreted at Station ID: [id number]. NOTE: For mammograms, a report in lay terms will be sent to the patient. Approximately 15% of breast malignancies will not be visualized mammographically. In the management of a palpable breast mass, a negative mammogram must not discourage biopsy of a clinically suspicious lesion. Electronically Signed By: Annia Gomez M.D., Ph.D. ray/ashwini:06/08/2024 01:28:47 letter sent: Normal Exam ACR BI-RADS Category 1: Negative
== END ==
LOC: MAMMO 11:00
PROVIDERS: PCP Family Medicine; Referring Provider Family Medicine; Visit Provider Family Medicine
DX: Z12.31 Encounter for screening mammogram for malignant neoplasm of breast (principal); Z80.3 Family history of malignant neoplasm of breast; R92.333 Mammographic heterogeneous density, bilateral breasts
CPT/HCPCS: 77063; 77067

== ENCOUNTER → 2024-11-14 15:42 | Outpatient (CLI) | payer MEDICARE, OTHER, SELFPAY ==
--- NOTE | 2024-11-14 15:44 | DI.RAD.S_ITS ---
PROCEDURE: XR THORACIC SPINE 2V INDICATIONS: rule out compression fracture T10-12 TECHNIQUE: 2 views of the thoracic spine were acquired. COMPARISON: None. FINDINGS: Bones: There is diffuse generalized osseous demineralization. Moderate multilevel degenerative changes include anterior osteophytosis and disc height loss consecutive levels of the midthoracic spine. No fractures or dislocations. No suspicious bony lesions. 12 pairs of ribs are noted, and appear intact where visualized. Soft tissues: No paravertebral stripe thickening. IMPRESSION: Degenerative change and diffuse generalized osseous demineralization without evidence acute osseous abnormality. Dictated by: Misha Felix M.D. on 11/15/2024 at 3:45 Approved by: Misha Felix M.D. on 11/15/2024 at 3:46
== END ==
PROVIDERS: PCP Family Medicine; Referring Provider Family Medicine; Visit Provider Family Medicine
DX: M81.0 Age-related osteoporosis without current pathological fracture (principal); M47.814 Spondylosis without myelopathy or radiculopathy, thoracic region; M54.6 Pain in thoracic spine
CPT/HCPCS: 72070

== ENCOUNTER → 2025-02-14 08:56 | Outpatient (CLI) | payer MEDICARE, OTHER, SELFPAY ==
[2025-02-14 09:18] LABS: Hematocrit 40.4 % (36-46); Hemoglobin 13.7 g/dL (12.0-16.0); Mean Corpuscular HGB Conc 34.0 % (30-36); Mean Corpuscular Hemoglobin 31.0 PG (26-34); Mean Corpuscular Volume 91.2 fL (80-100); Platelet Count 210 X10^3/uL (150-400)
[2025-02-14 09:46] LABS: Alanine Aminotransferase 15 IU/L (<35); Albumin 4.2 g/dL (3.5-5.0); Albumin Globulin Ratio 1.6 (1.0-2.8); Alkaline Phosphatase 73 U/L (38-126); Blood Urea Nitrogen 25 mg/dL (7-17); Calcium 9.0 mg/dL (8.4-10.2); Carbon Dioxide 27 mmol/L (22-32); Chloride 103 mmol/L (98-107); Estimated Glomerular Filt Rate > 60 mL/min (>60); Globulin 2.6 g/dL (1.7-4.1); Glucose 92 mg/dL (70-99); HEMOLYSIS < 15 (0-50); Potassium 4.2 mmol/L (3.4-5.1); Sodium 136 mmol/L (137-145); Total Protein 6.8 g/dL (6.3-8.2)
[2025-02-14 10:13] LABS: TSH w/ Reflex to FT4 1.43 uIU/mL (0.47-4.68)
== END ==
PROVIDERS: PCP Family Medicine; Referring Provider Family Medicine; Visit Provider Family Medicine
DX: E03.9 Hypothyroidism, unspecified (principal); D72.819 Decreased white blood cell count, unspecified; D72.810 Lymphocytopenia
CPT/HCPCS: 36415; 80053; 84443; 85027

== ENCOUNTER → 2025-03-02 13:36 | Outpatient (CLI) | payer MEDICARE, OTHER, SELFPAY ==
[2025-03-02 15:19] LABS: Blood Urea Nitrogen 19 mg/dL (7-17); Calcium 9.6 mg/dL (8.4-10.2); Carbon Dioxide 26 mmol/L (22-32); Chloride 104 mmol/L (98-107); Estimated Glomerular Filt Rate > 60 mL/min (>60); Glucose 91 mg/dL (70-99); HEMOLYSIS < 15 (0-50); Potassium 4.1 mmol/L (3.4-5.1); Sodium 136 mmol/L (137-145)
== END ==
PROVIDERS: PCP Family Medicine; Referring Provider Family Medicine; Visit Provider Family Medicine
DX: R42 Dizziness and giddiness (principal)
CPT/HCPCS: 36415; 80048

== ENCOUNTER → 2025-06-29 11:23 | Outpatient (CLI) | payer MEDICARE, OTHER, SELFPAY ==
--- NOTE | 2025-06-29 11:25 | DI.RAD.S_ITS ---
PROCEDURE: XR DEXA AXIAL SKELETON INDICATIONS: Osteoporosis on previous DEXAs 2018, 2020 COMPARISON: [facility], , XR DEXA AXIAL SKELETON, 06/11/2021, 11:29. FINDINGS: Lumbar Spine: Bone mineral density 0.717 g/cm2, T score -3.0. There is interval 6.1% decrease in total lumbar spine bone mineral density. Left Femoral Neck: Bone mineral density 0.468 g/cm2, T score -3.4. There is interval 18% decrease in left femoral neck bone mineral density. Left Hip: Bone mineral density 0.575 g/cm2, T score -3.0. There is interval 3.4% decrease in total left hip bone mineral density. Fracture Risk Calculation (when applicable): 10-year fracture risk of a major osteoporotic fracture 24 percent and of a hip fracture 11 percent. (T score greater or equal to -1.0 to: NORMAL) (T score from -1.1 to -2.4: OSTEOPENIA) (T score less than or equal to -2.5: OSTEOPOROSIS) IMPRESSION: Osteoporosis as above. Follow-up guidelines as follows: Osteoporosis: Consider a repeat DEXA and Vertebral Fracture Assessment (VFA) exam in 2 years or sooner if medically necessary, to reassess this patient's status. Osteopenia: Consider a repeat DEXA in 2-3 years to reassess this patient's status, or if there is a new clinical indication. Normal: Consider a repeat DEXA in 5 years or sooner, or if there is a new clinical indication. All treatment decisions require clinical judgment and consideration of individual patient factors, including patient preferences, comorbidities, previous drug use, risk factors not captured in the FRAX model (e.g., frailty, falls, vitamin D deficiency, increased bone turnover, interval significant decline in bone density ) and possible under- or over-estimation of fracture risk by FRAX. In addition, the NOF Guide recommends that FDA-approved medical therapies be considered in postmenopausal women and men age >= 50 years with a: * Hip or vertebral (clinical or morphometric) fracture * T-score of <=-2.5 at the spine or hip * Ten-year fracture probability by FRAX of >= 3% for hip fracture or >=20% for major osteoporotic fracture. Dictated by: Adonay Choi M.D. on 06/29/2025 at 20:43 Approved by: Adonay Choi M.D. on 06/29/2025 at 20:44
--- NOTE | 2025-06-29 11:25 | DI.MG.S_ITS ---
MM screening mammo BI: 06/29/2025. BI-RADS: 1 CLINICAL: 84-year old female for bilateral screening mammogram. Tyrer-Cuzick lifetime risk of 1.4%. Current reported family history of breast cancer: mother and maternal aunt. PRIOR EXAMS 06/07/2024, 05/12/2023, 05/06/2022, 06/11/2021. MAMMOGRAPHY TECHNIQUE: 2D and 3D (tomosynthesis) digital mammographic views obtained, with additional images as needed for full coverage. Current study was also evaluated with a Computer Aided Detection (CAD) system. DENSITY C. The breasts are heterogeneously dense, which may obscure small masses. MAMMOGRAPHY FINDINGS Bilateral: No suspicious mass, asymmetry, microcalcification, or other abnormality seen. IMPRESSION: * No evidence of malignancy. RECOMMENDATIONS Bilateral * Annual screening mammography. OVERALL ASSESSMENT CATEGORY BI-RADS-1: Negative. The [employer] recommends annual screening mammography beginning at age 40 for women with average risk of breast cancer. ELECTRONICALLY SIGNED: Nancy Vasquez M.D. on 06/30/2025 at 03:12:39 PM PT Interpreting Station ID: [id number]
== END ==
LOC: MAMMO 11:24
PROVIDERS: PCP Family Medicine; Referring Provider Family Medicine; Visit Provider Family Medicine
DX: Z12.31 Encounter for screening mammogram for malignant neoplasm of breast (principal); M81.0 Age-related osteoporosis without current pathological fracture; R92.333 Mammographic heterogeneous density, bilateral breasts; Z80.3 Family history of malignant neoplasm of breast
CPT/HCPCS: 77063; 77067; 77080